=== PATIENT | male | born 1965 | race African-American/Black ===

== ENCOUNTER 2017-03-27 15:03 | Emergency (ER) | payer MEDICAID ==
[2017-03-27 15:11] VITALS: TEMP 98.1
--- NOTE | 2017-03-27 15:32 | EDPHY ---
H & P Stated Complaint: Bilateral foot pain Time Seen by Provider: 03/27/17 15:14 HPI/ROS: CHIEF COMPLAINT: Bilateral foot pain HISTORY OF PRESENT ILLNESS: The patient has a history of chronic bilateral ft pain. The patient is homeless. He typically receives his care in [place]. The patient presents to the ED after he developed increasing pain in his feet after walking on them today. The patient denies any fever. The patient takes no regular medications. The patient denies additional acute complaints. REVIEW OF SYSTEMS: A comprehensive 10 point review of systems is otherwise negative aside from elements mentioned in the history of present illness. Source: Patient Exam Limitations: No limitations - Personal History Current Tetanus/Diphtheria Vaccine: Yes Current Tetanus Diphtheria and Acellular Pertussis (TDAP): Yes - Medical/Surgical History Hx Asthma: No Hx Chronic Respiratory Disease: No Hx Diabetes: No Hx Cardiac Disease: No Hx Renal Disease: No Hx Cirrhosis: No Hx Alcoholism: No Hx HIV/AIDS: No Hx Splenectomy or Spleen Trauma: No Other PMH: Shoudler replacement, Ulcers, HTN - Social History Smoking Status: Never smoked - Physical Exam Exam: General Appearance: Alert, no distress Eyes: Pupils equal and round no pallor or injection ENT, Mouth: Mucous membranes moist Respiratory: There are no retractions, lungs are clear to auscultation Cardiovascular: Regular rate and rhythm Gastrointestinal: Abdomen is soft and nontender, no masses, bowel sounds normal Neurological: A&O, normal motor function, normal sensory exam, normal cranial nerves Skin: Warm and dry, no rashes Musculoskeletal: Neck is supple nontender Extremities: symmetrical, full range of motion Constitutional: Initial Vital Signs Temperature (C) 36.7 C 03/27/17 15:09 Heart Rate 72 03/27/17 15:09 Respiratory Rate 16 03/27/17 15:09 Blood Pressure 207/112 H 03/27/17 15:09 O2 Sat (%) 94 03/27/17 15:09 O2 Delivery Mode Room Air Allergies/Adverse Reactions: No Known Allergies Allergy (Unverified 03/27/17 15:09) Home Medications: Medication Instructions Recorded Gabapentin [Neurontin 300 MG (*)] 300 mg PO TID PRN #60 cap 03/27/17 Medical Decision Making ED Course/Re-evaluation: The patient has no evidence of acute vascular insufficiency, infection or traumatic injury. He presents to the ED with chronic lower extremity pain. The patient did report a history of diabetes. He has no evidence of diabetic ketoacidosis. The patient will be given a prescription for Neurontin for his chronic foot pain. He is advised to follow up with his primary care provider in [place]. - Data Points Laboratory Results: Laboratory Results 03/27/17 15:40 03/27/17 15:40 Sodium 142 mEq/L mEq/L (134-144) Potassium 4.0 mEq/L mEq/L (3.5-5.2) Chloride 107 mEq/L mEq/L (97-110) Carbon Dioxide 25 mEq/l mEq/l (22-31) Anion Gap 10 mEq/L mEq/L (8-16) BUN 27 mg/dL H mg/dL (7-23) Creatinine 1.4 mg/dL H mg/dL (0.7-1.3) Estimated GFR 53 Glucose 131 mg/dL H mg/dL (70-100) Calcium 9.1 mg/dL mg/dL (8.5-10.4) Departure - Departure Disposition: Home, Routine, Self-Care Clinical Impression: Chronic pain of toes of both feet Condition: Good Instructions: Chronic Pain (ED) Additional Instructions: 1. Take Ibuprofen or Motrin 600 mg by mouth three times a day. 2. I recommend trying Neurontin as prescribed for your pain. 3. Please follow up with your primary care provider in [place] for recheck within the next week. Referrals: CRISTOFER RAYGOZA [Other] - As per Instructions Prescriptions: Gabapentin [Neurontin 300 MG (*)] 300 mg PO TID PRN #60 cap PRN Reason: for pain
[2017-03-27] MEDS ORDERED: GABAPENTIN 300 MG CAP PO ONE (16:10)
[2017-03-27 16:24] VITALS: BP 159/81; PULSE 68; RESP 18; O2SAT 97
== END 2017-03-27 16:25 | disposition home or self-care (01) ==
DX: M79.675 Pain in left toe(s) (principal); M79.674 Pain in right toe(s); I10 Essential (primary) hypertension; G89.29 Other chronic pain